=== PATIENT | male | born 1995 | race Two or more races ===

== ENCOUNTER 2024-12-19 19:20 | Emergency (ER) | payer MEDICAID, OTHER ==
[~2024-12-19] VITALS: Ht 175.3 cm; Wt 111.9 kg
[2024-12-19] MEDS: KETOROLAC TROMETH 60MG/2ML VIAL IM ONE (19:45)
[2024-12-19] MEDS: HYDROcodone-ACET 5/325MG TAB PO ONE (19:45)
[2024-12-19] MEDS: DexAMETHasone SOD PHOS 10MG/1ML VIAL INJ IM ONE (19:45)
--- NOTE | 2024-12-19 19:49 | ED.PDOC ---
Eye-HPI HPI Comments 29 y/o M, presents to the ED for CC of right ear pain. Patient reports, he has been experiencing right ear pain with associated hearing loss onset, 1100 this morning (12/19/24). Patient states, he believes he may have a spider or insect lodged in his right ear. Patient denies recent outside activity, fever, chills, or nausea. No other symptoms or modifying factors present at this time. Patient was hypertensive on arrival. Chief Complaint: Earache Time Seen by MD: 19:45 Reviewed Notes: Nurses Notes, Medications, Allergies Allergies: Coded Allergies: NO KNOWN ALLERGIES (Unverified , 12/19/24) Information Source: Patient Mode of Arrival: Ambulatory Timing: Hours Duration: Since onset Prehospital treatment: None Quality: Hearing loss Eye Location: Right Lids: Normal Conjunctiva: Normal Cornea: Normal Pupils: Normal EOM: Normal Fundus: Normal Slit lamp exam: Normal Anterior chamber: Normal Mouth: Normal ENT Ear Exam: Swelling, Red Nose: Normal Sinuses: Normal Oropharynx: Normal Onset: Spontaneous Throat Exposed to: None History of: None Last Tetanus: Unknown Modifying factors: Nothing Associated signs and symptoms: None Past Medical History PAST MEDICAL HISTORY: Denies Surgical History: Denies all surgeries Family History Family History: Unknown Social History Smoker: Non-Smoker Alcohol: Denies ETOH Use Drugs: Denies Drug Use Lives In: Home Constitutional: denies: chills, diaphoresis, fatigue, fever, malaise, sweats, weakness, others EENTM: reports: ear pain; denies: blurred vision, double vision, ear bleeding, ear discharge, ear drainage, ear ringing, eye pain, eye redness, hearing loss, mouth pain, mouth swelling, nasal discharge, nose bleeding, nose congestion, nose pain, photophobia, tearing, throat pain, throat swelling, voice changes, others Respiratory: denies: cough, hemoptysis, orthopnea, SOB at rest, shortness of breath, SOB with excertion, stridor, wheezing, others Cardiovascular: denies: chest pain, dizzy spells, diaphoresis, Dyspnea on exertion, edema, irregular heart beat, left arm pain, lightheadedness, palpitations, PND, syncope, others Gastrointestinal: denies: abdomen distended, abdominal pain, blood streaked bowels, constipated, diarrhea, dysphagia, difficulty swallowing, hematemesis, melena, nausea, poor appetite, poor fluid intake, rectal bleeding, rectal pain, vomiting, others Genitourinary: denies: burning, dysuria, flank pain, frequency, hematuria, incontinence, penile discharge, penile sore, pain, testicle pain, testicle swelling, urgency, others Neurological: denies: dizziness, fainting, headache, left sided numbness, left sided weakness, numbness, paresthesia, pre-existing deficit, right sided numbness, right sided weakness, seizure, speech problems, tingling, tremors, weakness, others Musculoskeletal: denies: back pain, gout, joint pain, joint swelling, muscle pain, muscle stiffness, neck pain, others Integumetry: denies: bruises, change in color, change in hair/nails, dryness, laceration, lesions, lumps, rash, wounds, others Allergic/Immunocompromised: denies: Difficulty Healing, Frequent Infections, Hives, Itching, others Hematologic/Lymphatic: denies: anemia, blood clots, easy bleeding, easy bruising, swollen glands, others Endocrine: denies: excessive hunger, excessive sweating, excessive thirst, excessive urination, flushing, intolerance to cold, intolerance to heat, unexplained weight gain, unexplained weight loss, others Psychiatric: denies: anxiety, bipolar disorder, depression, hopeless, panic disorder, schizophrenia, sleepless, suicidal, others All Other Systems: Reviewed and Negative Physical Exam General Appearance: Moderate Distress (Moderate distress due to right ear pain concerns.), Normal HEENT: Pharyngeal Erythema (Mildly beefy oropharynx. No exudate noted. Airway is patent.), Other (Right ear canal reveals moderate to significant erythema and mild edema. TM is slightly bulging and red. No perforations noted. Scant debris.) Neck: Full Range of Motion, Non-Tender, Normal, Normal Inspection Respiratory: Chest Non-Tender, Lungs Clear, No Accessory Muscle Use, No Respiratory Distress, Normal Breath Sounds Cardiovascular: No Edema, No JVD, No Murmur, No Gallop, Normal Peripheral Pulses, Regular Rate/Rhythm Breast Exam: Deferred Gastrointestinal: No Organomegaly, Non Tender, No Pulsatile Mass, Normal Bowel Sounds, Soft Genitalia: Deferred Pelvic: Deferred Rectal: Deferred Extremities: No calf tenderness, Normal capillary refill, Normal inspection, Normal range of motion, Non-tender, No pedal edema Neurologic: Alert, No Motor Deficits, Normal Affect, Normal Mood, No Sensory Deficits Cerebellar Function: Normal Reflexes: Normal Skin: Dry, Normal Color, Warm Lymphatic: No Adenopathy Was a procedure done? Was a procedure done?: No EENT DIFF Eye: N/A Ear: Cerumen Impaction, Otitis Externa, Otitis Media, Other (Ear foreign body) Nose: N/A Mouth: N/A Sore Throat: N/A X-Ray, Labs, Meds, VS Vital Signs Date Time Temp Pulse Resp B/P (MAP) Pulse Ox O2 Delivery O2 Flow Rate FiO2 12/19/24 19:20 98.8 90 17 140/103 (115) 99 98.8 X-Ray, Labs, Meds, VS Comment Advised patient that he suffering from an otitis media. We will attack this on both ends with the oral antibiotics and ear drops. Pain medication as needed Time of 1ST Reevaluation: 20:34 Reevaluation 1ST: Improved Consultation: PCP Patient Education/Counseling: Diagnosis, Treatment Family Education/Counseling: Diagnosis, Treatment, No Family Present Departure 1 Departure Time of Disposition: 20:34 Impression: Primary Impression: Otitis media Disposition: HOME / SELF CARE / HOMELESS Condition: Stable Additional Instructions: Advise oral antibiotics and ear drop antibiotics as directed until completion. Pain medication as needed. e-Prescriptions Acetaminophen (Acetaminophen) 500 Mg Tab 500 MG PO Q4HP PRN, #30 TAB Prov: CHAN MANUEL PAC 12/19/24 Ibuprofen Micronized (Ibuprofen) 800 Mg Tab 800 MG PO Q8HP PRN, #20 TAB Prov: CHAN MANUEL PAC 12/19/24 [id number] (Otic) (Cortisporin Otic Soln) [address] 4 DROP OT TID for 7 Days, #2.5 ML Prov: CHAN MANUEL PAC 12/19/24 Amoxicillin & Pot Clavulanate (AUGMENTIN TABLET) 875 Mg Tb 875 MG PO BID for 7 Days, #14 TAB Prov: CHAN MANUEL PAC 12/19/24 Discharged With: Self, Friend Critical Care Note Critical Care Time?: No Stability Stability form required: No Heart Score Heart Score: Heart Score Response (Comments) Value History N/A 0 EKG N/A 0 Age N/A 0 Risk Factors N/A 0 Troponin N/A 0 Total 0 I personally scribed for CHAN MANUEL PAC ([email or web address]) on 12/19/24 at 19:49. Electronically submitted by Tracee Guillory ([email or web address]). CHAN MANUEL PAC Dec 19, 2024 19:49
[2024-12-19] MEDS ORDERED: IBUP-1455 PO (20:37)
[2024-12-19] MEDS ORDERED: ACET500T58 PO (20:37)
[2024-12-19] MEDS ORDERED: COR10OTS OT (20:37)
[2024-12-19] MEDS ORDERED: AUG875T PO (20:37)
[2024-12-19 21:20] VITALS: BP 154/90; PULSE 78; RESP 20; TEMP 98.8; O2SAT 94
== END 2024-12-19 21:21 | disposition home or self-care (01) ==
LOC: ER 19:20
DX: H66.91 Otitis media, unspecified, right ear (principal); H91.8X1 Other specified hearing loss, right ear; I10 Essential (primary) hypertension
CPT/HCPCS: 96372; 99284; J1100; J1885